=== PATIENT | male | born 1965 | race Caucasian/White ===

== ENCOUNTER 2022-11-23 17:15 | Emergency (ER) | payer MEDICAID, SELFPAY ==
[2022-11-23 17:17] VITALS: BP 119/83; PULSE 94; RESP 16; TEMP 36.3; O2SAT 99; BMI 25.6
--- NOTE | 2022-11-23 17:37 | EDS_ITS ---
HPI <KARINA Keane - Last Filed: 11/23/22 20:05> History of Present Illness Chief Complaint: Hyperglycemia Narrative Narrative: 57-year-old male type I diabetic states his insulin pump came unhooked at 8 AM today. The attachment that goes onto his abdomen broke and he does not have a replacement piece because he is here visiting a friend in [place]. He lives in [place] and says he has the correct piece to fix it at home. He ate a PB&J and checked his sugar and it is in the 500s. He otherwise feels well. He sees an accounting machine mechanic in [place], Dr. Villarreal. PFSH <KARINA Keane - Last Filed: 11/23/22 20:05> PFSH Allergy/AdvReac Type Severity Reaction Status Date / Time meperidine [From Demerol] AdvReac Other Verified 11/23/22 17:17 Social History Smoking Status: Current every day smoker tobacco type: cigarettes ROS <KARINA Keane - Last Filed: 11/23/22 20:05> ROS ED ROS Narrative Constitutional: Negative for fever, chills, malaise. GI: Negative for abdominal pain, nausea, vomiting. : Negative for dysuria. Neuro: Negative for headache. EXAM <KARINA Keane Last Filed: 11/23/22 20:05> Physical Exam Narrative Exam Narrative: CONST: Patient sitting in no acute distress. EYES: Normal inspection. NECK: Normal inspection. RESP: No respiratory distress, CTAB. CVS: Regular rate and rhythm, no murmur, no gallop. ABD: Soft and nontender, no guarding or rebound, nondistended. SKIN: Color normal, no rash, warm, dry, intact. EXTREMITIES: Normal appearance, no pedal edema. NEURO: Oriented x4. PSYCH: Normal affect. Const Vital Signs: 11/23/22 17:17 11/23/22 18:11 11/23/22 19:00 Temperature 97.3 F L Temperature Source Temporal Pulse Rate 94 71 Respiratory Rate 16 16 Respiratory Effort Normal Non-Labored Respiratory Pattern Normal Blood Pressure 119/83 H 160/80 H Blood Pressure Mean 95 106 Pulse Ox 99 100 Oxygen Delivery Method Room Air Room Air 11/23/22 20:00 11/23/22 20:03 Temperature 98.1 F Temperature Source Pulse Rate 78 79 Respiratory Rate 18 16 Respiratory Effort Respiratory Pattern Blood Pressure 155/75 H 154/89 H Blood Pressure Mean 101 Pulse Ox 99 99 Oxygen Delivery Method Room Air <Dr. Glenn Torres DO - Last Filed: 11/23/22 22:34> Physical Exam Const Vital Signs: 11/23/22 17:17 11/23/22 18:11 11/23/22 19:00 Temperature 97.3 F L Temperature Source Temporal Pulse Rate 94 71 Respiratory Rate 16 16 Respiratory Effort Normal Non-Labored Respiratory Pattern Normal Blood Pressure 119/83 H 160/80 H Blood Pressure Mean 95 106 Pulse Ox 99 100 Oxygen Delivery Method Room Air Room Air 11/23/22 20:00 11/23/22 20:03 Temperature 98.1 F Temperature Source Pulse Rate 78 79 Respiratory Rate 18 16 Respiratory Effort Respiratory Pattern Blood Pressure 155/75 H 154/89 H Blood Pressure Mean 101 Pulse Ox 99 99 Oxygen Delivery Method Room Air MDM <KARINA Keane - Last Filed: 11/23/22 20:05> [facility] Narrative Medical decision making narrative: Patient's insulin pump has not been working because a part broke this morning and his replacement is at home and he has been unable to get there. He has no other acute complaints. He appears well with normal vital signs. Exam unremarkable. Patient was given IV fluids, 10 units of lispro, and BMP checked. Glucose is 519, normal CO2 and anion gap. Pseudohyponatremia with corrected sodium of 132. Potassium 5.2. An hour after 10 units of insulin blood sugar is 444. Patient states he does not want to wait here and will go home and replace his insulin pump part. He was discharged in stable condition. Differential: Diabetic hyperglycemia versus DKA Lab Data Attestation: I reviewed the patient's lab results. Labs: Laboratory Results - last 24 hr 11/23/22 11/23/22 17:56 19:22 Sodium 125 L Potassium 5.2 H Chloride 91 L Carbon Dioxide 21.0 Anion Gap 13 BUN 28 H Creatinine 1.18 Estim Creat Clear Calc 72.18 Est GFR (MDRD) Af Amer 82 Est GFR (MDRD) Non-Af 68 BUN/Creatinine Ratio 23.7 H Glucose 519 H* Calcium 9.7 POC Glucose 444 H <Dr. Glenn Torres DO - Last Filed: 11/23/22 22:34> [facility] MDM Narrative Medical decision making narrative: Patient's insulin pump has not been working because a part broke this morning and his replacement is at home and he has been unable to get there. He has no other acute complaints. He appears well with normal vital signs. Exam unremarkable. Patient was given IV fluids, 10 units of lispro, and BMP checked. Glucose is 519, normal CO2 and anion gap. Pseudohyponatremia with corrected sodium of 132. Potassium 5.2. An hour after 10 units of insulin blood sugar is 444. Patient states he does not want to wait here and will go home and replace his insulin pump part. He was discharged in stable condition. Differential: Diabetic hyperglycemia versus DKA Attending note: Patient seen and evaluated with transportation refrigeration technician. I perform my own [id number] evaluation. I agree with the plan of work-up. Insulin pump malfunction with hyperglycemia. Denies eating large meals states glucose reading over 500. No nausea or vomiting. Has been diabetic for 10 years insulin pump for a year follows endocrinology in [place]. Basal rate pump at 0.75 units/h, he however states he does not carb count or check his sugars often. However states typically 1 8190s. Exam alert nontoxic. Patient given IV fluids labs glucose 519 within normal anion gap. Pseudohyponatremia corrected at 132. He was given 10 units of insulin recheck 444, then stating he wanted to leave. He is not in DKA. He has parts for his pump at home. Outpatient follow-up. Lab Data Labs: Laboratory Results - last 24 hr 11/23/22 11/23/22 17:56 19:22 Sodium 125 L Potassium 5.2 H Chloride 91 L Carbon Dioxide 21.0 Anion Gap 13 BUN 28 H Creatinine 1.18 Estim Creat Clear Calc 72.18 Est GFR (MDRD) Af Amer 82 Est GFR (MDRD) Non-Af 68 BUN/Creatinine Ratio 23.7 H Glucose 519 H* Calcium 9.7 POC Glucose 444 H Discharge Plan Triage Chief Complaint: Hyperglycemia ED Midlevel Provider: Jaz Black ED Provider: Glenn Torres Dx/Rx/DC Orders Clinical Impression: Hyperglycemia due to type 1 diabetes mellitus, Mechanical complication, insulin pump Instructions: Blood Sugar Check Steps Stand Alone Forms: ED Work / School Excuse Primary Care Provider: MACK DOBBINS [facility]errals: [facility],Out of [Non-Staff] - Activity Restrictions/Additional Instructions: Replace your insulin pump part tonight and start using it. Call your accounting machine mechanic in the morning if there are any issues. Disposition Disposition: Home, Self Care Discharge Date/Time: 11/23/22 20:11
[2022-11-23] MEDS: 0.9% Normal Saline 1,000 ML 999 ML IV (18:16)
[2022-11-23 18:24] LABS: Anion Gap 13 (5-15); BUN 28 mg/dL (7-18); BUN/Creat Ratio 23.7 RATIO (10-20); Calcium,Total 9.7 mg/dL (8.5-10.1); Chloride 91 mmol/L (98-107); Creatinine, Serum 1.18 mg/dL (0.70-1.30); EST Glomerular Filtration Rate 68 mL/min (>60); Est Glom Filt Rate - Afr Amer 82 mL/min (>60); Estimated Creatinine Clearance 72.18 ml/min; Glucose 519 mg/dL (74-106); Potassium 5.2 mmol/L (3.5-5.1); Sodium Level 125 mmol/L (136-145)
[2022-11-23 19:00] VITALS: BP 160/80; PULSE 71; RESP 16; O2SAT 100
[2022-11-23 19:41] LABS: Bedside Glucose 444 mg/dL (74-106)
[2022-11-23 20:00] VITALS: BP 155/75; PULSE 78; RESP 18; O2SAT 99
[2022-11-23 20:03] VITALS: BP 154/89; PULSE 79; RESP 16; TEMP 36.7; O2SAT 99
== END 2022-11-23 20:11 | disposition home or self-care (01) ==
PROVIDERS: Physician Assistant; Emergency Provider Emergency Medicine; Visit Provider Emergency Medicine
DX: T85.694A Other mechanical complication of insulin pump, initial encounter (principal); E10.65 Type 1 diabetes mellitus with hyperglycemia; F17.210 Nicotine dependence, cigarettes, uncomplicated; Z96.41 Presence of insulin pump (external) (internal); Y82.9 Unspecified medical devices associated with adverse incidents
CPT/HCPCS: 80048; 82962; 96360; 99283; J7030; A4216